=== PATIENT | male | born 1960 | race Caucasian/White ===

== ENCOUNTER 2016-05-12 06:44 | Day surgery (SDC) | payer BC ==
[~2016-05-12 06:44] MED LIST: Lactated Ringers 1,000 ML IV SCH
[2016-05-12] MEDS ORDERED: Propofol 200 MG/20 ML SDV ONE (08:20)
[2016-05-12 10:05] VITALS: BP 108/69
--- NOTE | 2016-05-13 08:44 | OR ---
DATE OF SURGERY: 05/12/2016. REFERRING PROVIDER: Parth Moy MD., [facility] in [place]. PREOPERATIVE DIAGNOSES: Screening colonoscopy. This is the patient's first colonoscopy. There is no known family history of colon cancer or colon polyps. POSTOPERATIVE DIAGNOSES: Two small polyps, removed with cold forceps. 1. 3 mm polyp at 75 cm. 2. 2 mm polyp at 10 cm. PROCEDURE: Colonoscopy with polypectomy x2 using cold forceps. SURGEON: Tim Byers M.D. ANESTHESIA: Monitored anesthesia care. BOWEL PREP: Good. INDICATION: Rashid is a 55-year-old male was brought to the endoscopy suite after discussing risks and benefits of the procedure. Informed consent was obtained for conscious sedation and colonoscopy with or without biopsy and/or polypectomy. We also discussed possibility of missed lesions. Pre-procedure exam was unremarkable. IV, oxygen, and monitors were placed. The patient was placed in the left lateral decubitus position. Sedation was administered and a digital rectal exam was performed which was unremarkable. Colonoscope was passed into the rectum and slowly advanced all the way to the cecum. Cecum was viewed and photographed. The colonoscope was slowly withdrawn and the mucosa was closed observed in a direct circumferential manner. The ascending colon was unremarkable. The transverse colon was remarkable for 3 mm polyp at 75 cm from the anal verge. This was photographed and removed with cold forceps. The descending colon was unremarkable. The sigmoid colon was unremarkable. The proximal rectal area at about 10 cm from the anal verge revealed 2 mm polyp, which was photographed and removed with cold forceps. Retroflexion was performed, and the remainder of rectal mucosa was unremarkable. Scope was removed. The patient tolerated the procedure well. The patient was monitored until that baseline status. Discharge instructions were reviewed and the patient was discharged in good condition. COMPLICATIONS: None. TOTAL TIME: 16 minutes. ESTIMATED BLOOD LOSS: About 1 mL. RECOMMENDATIONS/FOLLOW-UP: We will await results of path report to determine ideal followup interval. I will have the patient hold his aspirin for 3 days to limit any chance of bleeding. I would like to thank Dr. Moy for this referral. DMB: 05/12/2016 11:47:21 MODL: 05/12/2016 12:30:57 /[id number] [facility]ITALLeandro
== END 2016-05-12 10:07 | disposition home or self-care (01) ==
LOC: VM.SDS 06:44
PROVIDERS: ATTEND Family Medicine
DX: Z12.11 Encounter for screening for malignant neoplasm of colon (principal); D12.3 Benign neoplasm of transverse colon; D12.8 Benign neoplasm of rectum; R00.2 Palpitations
CPT/HCPCS: 45380; J2704; J7120